=== PATIENT | male | born 1935 | race African-American/Black ===

== ENCOUNTER 2016-10-01 11:21 | Observation (INO) ==
[2016-10-01] MEDS ORDERED: ONDANSETRON 4 MG/2 ML VIAL IV STA (12:10)
[2016-10-01] MEDS ORDERED: SODIUM CHLORIDE 0.9% 500 ML IV STA (12:10)
[2016-10-01] MEDS ORDERED: cefTRIAXone 1,000 MG in SODIUM CHLORIDE 0.9% 100 ML IV STA (12:10)
[2016-10-01] MEDS ORDERED: methylPREDNISolone SOD SUC 125 MG/2 ML VIAL IV STA (12:10)
[2016-10-01] MEDS ORDERED: MORPHINE 2 MG/1 ML SYRINGE IV STA (12:10)
--- NOTE | 2016-10-01 12:26 | Emergency Department Note ---
Adrianna Rabago Gwan, am scribing for, and in the presence of, Vance Samano MD 12 :18. Jazmyne Rabago Charles R, MD, personally performed the services described in this documentation, ascribed by Nelson Rodas in my presence, and it is both accurate and complete 225 . Arrival - Arrival Chief Complaint: Shortness of Breath Stated Complaint: SOB ED Nursing Triage Note: increased sob over the past two days. wears o2 at home and is wearing it now. is a pt of dr tamez. has a hx of lung ca. not taking treatment for cancer. productive cough with foul smelling yellow thick sceretions. Mode of Arrival: Wheelchair Limitations: No Limitations Source: Patient, Family, Old Records Reviewed, RN Notes Reviewed Time Seen by Provider: 10/01/16 12:06 - History of Present Illness HPI Narrative: Pt is a 80 y/o male, with a hx of Stage 4 Lung CA, who presents to the ED with a c/o SOB, loss of appetite, productive cough with yellow sputum and bad odor with an onset of two days. Family stated that pt has refused tx for CA, that he is followed by Dr. Tamez and that he was last seen in office 3 months ago. Nurses note that pt wear O2 at home. Patient denies smoking or any hx of heart dx. No other problems/complaints reported in ED. Onset (ago): day(s) Consistency: constant Severity: severe Allergies/Adverse Reactions: Allergies Allergy/AdvReac Type Severity Reaction Status Date / Time No Known Allergies Allergy Unverified 07/05/16 16:09 Home Medications: Home Medications Medication Instructions Recorded Confirmed Type Aspirin EC Tab 81 mg PO DAILY 07/05/16 10/01/16 History Budesonide/Formoterol 160-4.5 2 puff INH BID 07/05/16 10/01/16 History [Symbicort 160-4.5] Ciprofloxacin HCl [Ciprofloxacin 1 drop BOTH EYES BID 07/05/16 10/01/16 History 0.3% Oph Soln] Ferrous Sulfate Tab [Feosol 325 mg PO BID 07/05/16 10/01/16 History Original Tab] Ipratropium/Albuterol Sulfate 3 ml INH Q4H PRN 07/05/16 10/01/16 History [Iprat-Albut 0.5-3(2.5) mg/3 ml] Ketorolac 0.5% Oph Soln [Acular 1 drop BOTH EYES BID 07/05/16 10/01/16 History 0.5% Oph Soln] Theophylline ER Cap (24 Hr) 200 mg PO DAILY 07/05/16 10/01/16 History [Hector-24] prednisoLONE acetate [PrednisoLONE 1 drop BOTH EYES BID 07/05/16 10/01/16 History Acetate 1% Oph Susp] Ipratropium/Albuterol Inhaler 1 puff INH QID 07/09/16 10/01/16 History [Combivent Respimat Inhaler] Furosemide Tab [Lasix Tab] 40 mg PO QOTHER DAY #30 tablet 07/13/16 10/01/16 Rx Lisinopril 10 mg PO DAILY 10/01/16 10/01/16 History Review of System - Review of System 12 point system: reviewed and no additional remarkable complaints except as stated - Review of System Constitutional: Present: as per HPI, other (loss of appetite) Respiratory: Present: as per HPI, cough (coughin up yellow stuff and it has a bad smell to it), other (short of breathe) Medical,Surgical,& Family Hx - Medical History Cardio: History of: CHF, Hypertension Endocrine: History of: Dyslipidemia Respiratory: History of: COPD (wears oxygen at 2l continuously) - Surgical History Thoracic Surgeries: Patient denies;: Lobectomy Neurologic Surgeries: Patient denies: Neurologic Surgery Abdominal Surgeries: Patient denies: Abdominal Surgery, Appendectomy, Cholecystectomy, Colonoscopy , Gastric Bypass Surgery, EGD, Hernia Repair - Family History Family History: Reports;: Family Cancer (mother, sister), Family Diabetes ( brother), Family Hypertension - Social History Smoking Status: Never smoker Exam Vital Signs: Vital Signs Temperature 98.1 F 10/01/16 12:00 Pulse Rate 114 H 10/01/16 15:30 Respiratory Rate 20 10/01/16 15:30 Blood Pressure 96/44 10/01/16 15:30 O2 Sat by Pulse Oximetry 95 10/01/16 15:30 - General General appearance: alert, other (general weakness) - Head Head exam: Present: atraumatic, normocephalic - Eye Eye exam: Present: normal appearance, PERRL, EOMI - ENT ENT exam: Present: normal oropharynx, mucous membranes moist, TM's normal bilaterally, normal external ear exam - Neck Neck exam: Present: full ROM, trachea midline. Absent: tenderness, meningismus , lymphadenopathy, thyromegaly - Chest Chest inspection: Present: other (Barrel Chest) - Respiratory Respiratory exam: Present: accessory muscle use, rhonchi (Harsh rhonchi worse on right than on left), wheezes (Worse on right than left ) - Cardiovascular Cardiovascular exam: Present: tachycardia - Abdominal Exam Abdominal exam: Present: soft, normal bowel sounds. Absent: distention, tenderness, guarding, rebound - Extremities Exam Extremities exam: Present: other (+1 edema bilateral lower extremities) - Back Exam Back exam: Present: full ROM. Absent: tenderness - Neurological Exam Neurological exam: Present: alert, oriented X3, CN II-XII intact. Absent: motor sensory deficit - Psychiatric Psychiatric exam: Present: normal affect, normal mood - Skin Skin exam: Present: warm, dry, intact, normal color Course - Consultations Consultation #1: Dr Tamez will admit pt Time: 15:46 Results - Labs CBC & BMP: 10/01/16 12:00 10/01/16 13:19 Lab Results: I have reviewed the patients labs Labs: Laboratory Tests 10/01/16 10/01/16 12:00 12:00 RBC 4.89 Hgb 10.5 L Hct 37.0 L MCV 75.7 L MCH 22 L MCHC 28.4 L RDW 18.6 H Plt Count 247 Neut % (Auto) 77.8 H Lymph % (Auto) 9.3 L Lymph # (Auto) 0.6 L INR 1.0 PT Patient/Control Mix 11.1 Laboratory Tests 10/01/16 10/01/16 12:00 12:00 WBC 6.8 RBC 4.89 Hgb 10.5 L Hct 37.0 L MCV 75.7 L MCH 22 L MCHC 28.4 L RDW 18.6 H Plt Count 247 Neut % (Auto) 77.8 H Lymph % (Auto) 9.3 L Lymph # (Auto) 0.6 L B-Natriuretic Peptide 10 Laboratory Tests 10/01/16 13:19 Sodium 140 Potassium 4.4 Chloride 99 Carbon Dioxide 31 BUN 19 H Creatinine 1.80 H Calcium 8.2 L AST 38 H ALT 12 L Albumin 2.9 L Globulin 4.5 H Albumin/Globulin Ratio 0.6 L - Diagnostic Findings Procedure: Chest x-ray: report reviewed by me (No significant change in the chronic interstitial scrring and patient's known right upper lobe lung mass. Slight worsening of right upper lobe opacities suggestive of atelectasis/ consolidative changes. Right basilar atelectasis and small right pleural effusion are not excluded. ) Disposition Clinical Impression: Acute exacerbation of chronic obstructive airways disease, Adenocarcinoma, lung , Mass of upper lobe of right lung, COPD exacerbation Case discussed with: patient, patient's family Disposition: Still a Patient Condition: Stable Time of Disposition: 15:47
[2016-10-01] MEDS ORDERED: ALBUTEROL 2.5 MG/3 ML NEB RESP TX SCH (12:30)
[2016-10-01] MEDS ORDERED: cefTRIAXone 1,000 MG VIAL ONE (12:34)
[2016-10-01] MEDS ORDERED: ONDANSETRON 4 MG/2 ML VIAL ONE (12:34)
[2016-10-01] MEDS ORDERED: MORPHINE 2 MG/1 ML SYRINGE ONE (12:35)
[2016-10-01] MEDS ORDERED: methylPREDNISolone SOD SUC 125 MG/2 ML VIAL ONE (12:35)
[2016-10-01 12:39] LABS: Basophils % 0.3 % (0.0-0.8); Eosinophils % 0.1 % (0.00-10.9); Hemoglobin 10.5 GM/DL (14.0-18.0); Immature Granulocytes % 0.3 %; Immature Granulocytes Absolute 0.02 #; Lymphocytes # 0.6 10*3/uL (1.4-4.0); Lymphocytes % 9.3 % (21.2-54.2); Mean Corpuscular HGB Conc 28.4 GM/DL (32-36); Mean Corpuscular Hemoglobin 22 PG (27-34); Mean Corpuscular Volume 75.7 FL (87-102); Monocytes # 0.8 10*3/uL (0.11-0.8); Monocytes % 12.2 % (1.7-12.7); Neutrophils # 5.3 10*3/uL (1.4-7.4); Neutrophils % 77.8 % (38.7-73.9); Platelet Count 247 10*3/uL (130-400); Red Blood Count 4.89 10*6/uL (3.8-5.5); Red Cell Distribution Width 18.6 % (9.3-17.3); White Blood Count 6.8 10*3/uL (4.5-13.71)
[2016-10-01 12:41] LABS: PT Patient Result 11.1 SECS
--- NOTE | 2016-10-01 12:42 | XRay Report ---
Exam: XR chest 1V portable Indication: Lung cancer Shortness of breath Comparison study: Prior chest radiograph 07/11/16 Findings: Right upper lobe no lung mass is not significantly changed when compared to prior. There are patchy opacities overlying the right upper lung likely representing atelectasis/consolidation changes. Mild elevation the right hemidiaphragm with volume loss is similar to prior. Small right pleural effusion and right basilar infectious/inflammatory infiltrates are not excluded. There is no pneumothorax identified. The left lung is predominantly clear with underlying interstitial scarring changes suggest which appear similar prior. Impression: No significant change in the chronic interstitial scarring and patient's known right upper lobe lung mass. Slight worsening of right upper lobe opacities suggestive of atelectasis/consolidative changes. Right basilar atelectasis and small right pleural effusion are not excluded. PROCEDURE INTERPRETED AT [facility] DEPARTMENT OF RADIOLOGY Final Report Signed by: Jaciel Arcos
[2016-10-01 13:03] LABS: Hypochromasia 1+
[2016-10-01 13:04] LABS: Microcytosis 1+; Ovalocytes Slight; Platelet Estimate Adequate
--- NOTE | 2016-10-01 13:48 | EKG Report ---
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
[2016-10-01 14:40] LABS: Alanine Aminotransferase 12 U/L (16-61); Albumin 2.9 G/DL (3.4-5.0); Alkaline Phosphatase 91 U/L (45-117); Aspartate Amino Transferase 38 U/L (0-37); Calcium 8.2 MG/DL (8.5-10.1); Total Protein 7.4 G/DL (6.4-8.3)
[2016-10-01 14:41] LABS: Blood Urea Nitrogen 19 MG/DL (7-18); Glucose 88 MG/DL (74-106); Magnesium 2.3 MG/DL (1.8-2.4); Osmolality,Calculated 279.4 MOS/KG (273-304); Potassium 4.4 MMOL/L (3.5-5.1); Sodium 140 MMOL/L (136-145); Troponin I Only < 0.015 NG/ML (0.00-0.045)
[2016-10-01] MEDS ORDERED: PROMETHAZINE INJ 25 MG in SODIUM CHLORIDE 0.9% 50 ML IV PRN (16:49)
[2016-10-01] MEDS ORDERED: ALPRAZolam 0.25 MG TABLET PO PRN (16:49)
[2016-10-01] MEDS ORDERED: LACTULOSE 20 GM/30 ML UDCUP PO PRN (16:49)
[2016-10-01] MEDS ORDERED: ALUMINUM/MAGNES/SIMETH MAX STR 30 ML UDCUP PO PRN (16:49)
[2016-10-01] MEDS ORDERED: MYLANTA/LIDO VISC 2:1 300 ML BOTTLE SWISH/SPIT PRN (16:49)
[2016-10-01] MEDS ORDERED: ALBUTEROL/IPRATROPIUM 3 ML NEB RESP TX PRN (16:49)
[2016-10-01] MEDS ORDERED: LOPERAMIDE 2 MG CAPSULE PO PRN ×2 (16:49)
[2016-10-01] MEDS ORDERED: chlorproMAZINE 25 MG TABLET PO PRN (16:49)
[2016-10-01] MEDS ORDERED: MYLANTA/LIDO VISC 2:1 300 ML BOTTLE SWISH/SWAL PRN (16:49)
[2016-10-01] MEDS ORDERED: ONDANSETRON 4 MG/2 ML VIAL IV PRN (16:49)
[2016-10-01] MEDS ORDERED: ACETAMINOPHEN 325 MG TABLET PO PRN (16:49)
[2016-10-01] MEDS ORDERED: MAGNESIUM HYDROXIDE SUSP 30 ML UDCUP PO PRN (16:49)
[2016-10-01] MEDS ORDERED: chlorproMAZINE INJ 50 MG in SODIUM CHLORIDE 0.9% 100 ML IV PRN (16:49)
[2016-10-01] MEDS ORDERED: BENZTROPINE 2 MG/2 ML AMP IV PRN (16:49)
[2016-10-01] MEDS ORDERED: traMADol 50 MG TABLET PO PRN (16:49)
[2016-10-01] MEDS ORDERED: chlorproMAZINE INJ 25 MG in SODIUM CHLORIDE 0.9% 100 ML IV PRN (16:49)
[2016-10-01] MEDS ORDERED: diphenhydrAMINE CAP 25 MG CAPSULE PO PRN (16:49)
[2016-10-01] MEDS ORDERED: TEMAZEPAM 7.5 MG CAPSULE PO PRN (16:49)
[2016-10-01 18:25] LABS: Basophils % 0.2 % (0.0-0.8); Hematocrit 33.3 VOL% (42.0-52.0); Hemoglobin 9.5 GM/DL (14.0-18.0); Immature Granulocytes % 0.3 %; Immature Granulocytes Absolute 0.02 #; Lymphocytes # 0.1 10*3/uL (1.4-4.0); Lymphocytes % 2.1 % (21.2-54.2); Mean Corpuscular HGB Conc 28.5 GM/DL (32-36); Mean Corpuscular Hemoglobin 22 PG (27-34); Mean Corpuscular Volume 77.3 FL (87-102); Mean Platelet Volume 10.6 FL (9.6-12.0); Monocytes # 0.1 10*3/uL (0.11-0.8); Monocytes % 1.6 % (1.7-12.7); Neutrophils # 6.1 10*3/uL (1.4-7.4); Neutrophils % 95.8 % (38.7-73.9); Platelet Count 289 10*3/uL (130-400); Red Blood Count 4.31 10*6/uL (3.8-5.5); Red Cell Distribution Width 18.2 % (9.3-17.3); White Blood Count 6.3 10*3/uL (4.5-13.71)
[2016-10-01] MEDS: SODIUM CHLORIDE 0.9% 1,000 ML IV SCH (18:43)
[2016-10-01 18:53] LABS: Albumin 2.9 G/DL (3.4-5.0); Bilirubin,Total 0.5 MG/DL (0.2-1.0); Magnesium 2.3 MG/DL (1.8-2.4); Osmolality,Calculated 279.7 MOS/KG (273-304); Potassium 4.5 MMOL/L (3.5-5.1); Total Protein 7.3 G/DL (6.4-8.3)
[2016-10-01 18:57] LABS: Lymphocytes 2 % (20-55); Segmented Neutrophils 96 % (50-85); Total Cells Counted 100
[2016-10-01 18:58] LABS: Elliptocytes 1+; Hypochromasia 1+; Platelet Estimate Adequate
[2016-10-01] MEDS: methylPREDNISolone SOD SUC 40 MG/1 ML VIAL IV SCH (21:21)
[2016-10-01] MEDS: BUDESONIDE/FORMOTEROL 160-4.5 INHALER 6 GM INH SCH (21:21)
[2016-10-01] MEDS: FERROUS SULFATE 325 MG TABLET PO SCH (21:22)
[2016-10-01] MEDS: prednisoLONE ACETATE 1% OPH SUSP 5 ML BOTTLE BOTH EYES SCH (21:22)
[2016-10-01] MEDS: CIPROFLOXACIN 0.3% OPH SOLN 2.5 ML BOTTLE BOTH EYES SCH (21:22)
[2016-10-01] MEDS: ALBUTEROL/IPRATROPIUM 3 ML NEB RESP TX SCH (22:40)
[2016-10-01] MEDS: KETOROLAC 0.5% OPH SOLN 3 ML BOTTLE BOTH EYES SCH (23:10)
[2016-10-02] MEDS: methylPREDNISolone SOD SUC 40 MG/1 ML VIAL IV SCH ×3 (04:57→21:33)
[2016-10-02] MEDS: SODIUM CHLORIDE 0.9% 1,000 ML IV SCH (04:57)
[2016-10-02] MEDS: ALBUTEROL/IPRATROPIUM 3 ML NEB RESP TX SCH ×4 (08:07→21:56)
--- NOTE | 2016-10-02 08:54 | Oncology History&Physical ---
Assessment and Plan (1) Non-small cell lung cancer Status: Acute Assessment and plan: The patient continues to decline radiotherapy. We have entertained chemotherapy though with a non-curative expectation. We have also discussed quality of life. I relayed that quality of life would be better off without pursuing treatment and the potential complications thereof. At this time the patient reaffirms his decision for best supportive care. We have discussed for home hospice to follow the patient after discharge and he is also agreeable to this plan of care. Possible discharge tomorrow Current Visit: Yes History of Present Illness Chief complaint: Shortness of breath History of present illness: Mr. Holder is a 80 year old male Admitted yesterday with a 24 hour complaint of increasing shortness of breath. The patient has non-small cell lung cancer involving the right upper lobe. He was seen in the office in June 2016 as an initial visit. After a prolonged discussion the patient decided upon best supportive care and not to pursue active treatment. He has been on home O2. He has been able to get around still driving etc. with the continuous use of O2. He denied fever or hemoptysis. Decreased O2 saturations were noted yesterday in the emergency room and the patient was admitted for further care. Home Medications Medication Instructions Recorded Confirmed Type Aspirin EC Tab 81 mg PO DAILY 07/05/16 10/01/16 History Budesonide/Formoterol 160-4.5 2 puff INH BID 07/05/16 10/01/16 History [Symbicort 160-4.5] Ciprofloxacin HCl [Ciprofloxacin 1 drop BOTH EYES BID 07/05/16 10/01/16 History 0.3% Oph Soln] Ferrous Sulfate Tab [Feosol 325 mg PO BID 07/05/16 10/01/16 History Original Tab] Ipratropium/Albuterol Sulfate 3 ml INH Q4H PRN 07/05/16 10/01/16 History [Iprat-Albut 0.5-3(2.5) mg/3 ml] Ketorolac 0.5% Oph Soln [Acular 1 drop BOTH EYES BID 07/05/16 10/01/16 History 0.5% Oph Soln] Theophylline ER Cap (24 Hr) 200 mg PO DAILY 07/05/16 10/01/16 History [Hector-24] prednisoLONE acetate [PrednisoLONE 1 drop BOTH EYES BID 07/05/16 10/01/16 History Acetate 1% Oph Susp] Ipratropium/Albuterol Inhaler 1 puff INH QID 07/09/16 10/01/16 History [Combivent Respimat Inhaler] Furosemide Tab [Lasix Tab] 40 mg PO QOTHER DAY #30 tablet 07/13/16 10/01/16 Rx Lisinopril 10 mg PO DAILY 10/01/16 10/01/16 History Allergies Allergy/AdvReac Type Severity Reaction Status Date / Time No Known Allergies Allergy Unverified 07/05/16 16:09 Medical,Surgical,& Family Hx - Medical History Cardio: History of: CHF, Hypertension Endocrine: History of: Dyslipidemia Respiratory: History of: COPD (wears oxygen at 2l continuously) Other: History of: Cancer - Surgical History Thoracic Surgeries: Patient denies;: Lobectomy Neurologic Surgeries: Patient denies: Neurologic Surgery Abdominal Surgeries: Patient denies: Abdominal Surgery, Appendectomy, Cholecystectomy, Colonoscopy , Gastric Bypass Surgery, EGD, Hernia Repair - Family History Family History: Reports;: Family Cancer (mother, sister), Family Diabetes ( brother), Family Hypertension - Social History Smoking Status: Never smoker Frequency of Alcohol Use: None Type of Drug Use: None - Constitutional Constitutional: Present: fatigue, malaise, weakness. Absent: fever(s), night sweats - EENT Eye: Absent: diplopia, loss of vision Ears: Absent: decreased hearing Nose, mouth and throat: Absent: dysphagia, epistaxis - Cardiovascular Cardiovascular ROS IM: Absent: chest pain, palpitations - Respiratory Respiratory: Present: cough, dyspnea, wheezing. Absent: hemoptysis - Gastrointestinal Gastrointestinal: Absent: dysphagia, early satiety - Genitourinary Genitourinary ROS male: Absent: hematuria - Musculoskeletal Musculoskeletal ROS: Absent: joint swelling - Neurological Neurological ROS: other (No seizure or syncope) - Psychiatric Psychiatric General: Absent: panic attacks Exam - Constitutional Vitals: Period Temp Pulse Resp BP Sys/Pak Pulse Ox Last 24 Hr 97 F-97.7 F 82-119 20-22 95-120/43-60 91-98 General appearance: normal weight, no acute distress - Head Head Exam: Present: normocephalic - Eye Eye Exam: Present: EOMI. Absent: conjunctival injection Pupils: Present: PERRL - ENT ENT exam: Present: normal external ear exam - Neck Neck exam: Present: normal inspection. Absent: lymphadenopathy - Respiratory Respiratory exam: Present: CTAB, decreased breath sounds. Absent: accessory muscle use, chest wall tenderness - Cardiovascular Cardiovascular exam: Present: RRR. Absent: systolic murmur - GI/Abdominal GI/Abdominal exam: Absent: ascites, distended, firm, guarding - Extremities Exam Extremities exam: Absent: edema - Neurological Exam Neurological exam: Present: alert, oriented X3 - Psychiatric Psychiatric exam: Present: normal affect, normal mood. Absent: agitated - Skin Skin exam: Present: warm, dry Results - Labs CBC & BMP: 10/01/16 18:00 10/01/16 17:59
--- NOTE | 2016-10-02 09:05 | XRay Report ---
XR chest 2V Indication: Shortness of breath Comparison: 01 October 2016 Findings: The heart and mediastinum are normal in size and configuration. The pulmonary vascularity is normal in caliber. There is increased right upper lung density when compared to previous study. No other lung infiltrates, effusions, pneumothorax or other abnormality is demonstrated. Impression: Increasing right upper lung density may indicate worsening pneumonia. PROCEDURE INTERPRETED AT [facility] DEPARTMENT OF RADIOLOGY Final Report Signed by: Dr. Clifton Londono
[2016-10-02] MEDS: LISINOPRIL 10 MG TABLET PO SCH (09:20)
[2016-10-02] MEDS: CIPROFLOXACIN 0.3% OPH SOLN 2.5 ML BOTTLE BOTH EYES SCH ×2 (09:20→21:33)
[2016-10-02] MEDS: ASPIRIN EC 81 MG TABLET PO SCH (09:20)
[2016-10-02] MEDS: THEOPHYLLINE ER (24 HR) 200 MG CAPSULE PO SCH (09:20)
[2016-10-02] MEDS: FERROUS SULFATE 325 MG TABLET PO SCH ×2 (09:20→21:33)
[2016-10-02] MEDS: prednisoLONE ACETATE 1% OPH SUSP 5 ML BOTTLE BOTH EYES SCH ×2 (09:20→21:34)
[2016-10-02] MEDS: PANTOPRAZOLE 40 MG VIAL IV SCH (09:20)
[2016-10-02] MEDS: BUDESONIDE/FORMOTEROL 160-4.5 INHALER 6 GM INH SCH ×2 (09:23→21:34)
[2016-10-02] MEDS: KETOROLAC 0.5% OPH SOLN 3 ML BOTTLE BOTH EYES SCH ×2 (09:24→21:34)
[2016-10-02] MEDS: guaiFENesin 200 MG/10 ML UDCUP PO PRN ×2 (13:53→21:33)
[2016-10-02] MEDS: cefTRIAXone 1,000 MG in SODIUM CHLORIDE 0.9% 100 ML IV SCH (13:53)
[2016-10-03] MEDS: methylPREDNISolone SOD SUC 40 MG/1 ML VIAL IV SCH ×2 (05:52→14:06)
[2016-10-03] MEDS: ALBUTEROL/IPRATROPIUM 3 ML NEB RESP TX SCH ×4 (07:05→20:36)
[2016-10-03] MEDS ORDERED: FUROSEMIDE 40 MG TABLET PO SCH (09:00)
[2016-10-03] MEDS: ASPIRIN EC 81 MG TABLET PO SCH (09:03)
[2016-10-03] MEDS: prednisoLONE ACETATE 1% OPH SUSP 5 ML BOTTLE BOTH EYES SCH ×2 (09:03→21:53)
[2016-10-03] MEDS: guaiFENesin 200 MG/10 ML UDCUP PO PRN (09:03)
[2016-10-03] MEDS: CIPROFLOXACIN 0.3% OPH SOLN 2.5 ML BOTTLE BOTH EYES SCH ×2 (09:03→21:54)
[2016-10-03] MEDS: THEOPHYLLINE ER (24 HR) 200 MG CAPSULE PO SCH (09:03)
[2016-10-03] MEDS: PANTOPRAZOLE 40 MG VIAL IV SCH (09:03)
[2016-10-03] MEDS: FERROUS SULFATE 325 MG TABLET PO SCH ×2 (09:03→21:56)
[2016-10-03] MEDS: LISINOPRIL 10 MG TABLET PO SCH (09:03)
[2016-10-03] MEDS: BUDESONIDE/FORMOTEROL 160-4.5 INHALER 6 GM INH SCH ×2 (09:07→21:57)
[2016-10-03] MEDS: KETOROLAC 0.5% OPH SOLN 3 ML BOTTLE BOTH EYES SCH ×2 (09:08→22:08)
--- NOTE | 2016-10-03 09:16 | Oncology Progress Note ---
Assessment and Plan (1) Non-small cell lung cancer Status: Acute Assessment and plan: The patient continues to decline radiotherapy. We have entertained chemotherapy though with a non-curative expectation. We have also discussed quality of life. I relayed that quality of life would be better off without pursuing treatment and the potential complications thereof. At this time the patient reaffirms his decision for best supportive care. We have discussed for home hospice to follow the patient after discharge and he is also agreeable to this plan of care. Possible discharge tomorrow Current Visit: Yes Oncology Subjective PN Interval history: Patient with lung cancer on best supportive care admitted with shortness of breath. His saturations remain marginal at 91% on 2 L nasal cannula. His cousin was present this morning and we had a discussion regarding his case in general as well as reaffirming the patient's decision to continue with best supportive care. Anticipating discharge tomorrow with home hospice. On examination the patient has a regular heart rhythm with no peripheral edema. He is appropriate awake alert and oriented. He does have a prolonged expiratory phase on bilateral pulmonary auscultation. I have tried to explain that he will likely have some degree of dyspnea for the remainder of his life. Hopefully he will be stable for discharge tomorrow and will do better with additional home care that was not available prior to admission Exam - Constitutional Vitals: Period Temp Pulse Resp BP Sys/Pak Pulse Ox Last 24 Hr 97.0 F-98.4 F 87-100 17-22 105-116/57-68 78-100 Results - Labs CBC & BMP: 10/01/16 18:00 10/01/16 17:59 Specialty Discharge - Follow Up or Referrals - Discharge Medications No Action Ketorolac 0.5% Oph Soln [Acular 0.5% Oph Soln] 1 drop BOTH EYES BID Ciprofloxacin HCl [Ciprofloxacin 0.3% Oph Soln] 1 drop BOTH EYES BID prednisoLONE acetate [PrednisoLONE Acetate 1% Oph Susp] 1 drop BOTH EYES BID Budesonide/Formoterol 160-4.5 [Symbicort 160-4.5] 2 puff INH BID Aspirin EC Tab 81 mg PO DAILY Theophylline ER Cap (24 Hr) [Hector-24] 200 mg PO DAILY Ferrous Sulfate Tab [Feosol Original Tab] 325 mg PO BID Ipratropium/Albuterol Sulfate [Iprat-Albut 0.5-3(2.5) mg/3 ml] 3 ml INH Q4H PRN PRN Reason: Shortness Of Breath Ipratropium/Albuterol Inhaler [Combivent Respimat Inhaler] 1 puff INH QID Furosemide Tab [Lasix Tab] 40 mg PO QOTHER DAY #30 tablet Lisinopril 10 mg PO DAILY
[2016-10-03] MEDS: cefTRIAXone 1,000 MG in SODIUM CHLORIDE 0.9% 100 ML IV SCH (14:06)
[2016-10-04] MEDS: ALBUTEROL/IPRATROPIUM 3 ML NEB RESP TX SCH (07:35)
[2016-10-04 08:27] VITALS: BP 123/62
--- NOTE | 2016-10-04 09:22 | Discharge Summary ---
Hospital Course - Hospital Course Hospital Course: Patient with advanced non-small cell lung cancer involving the right lung. The patient was admitted from home where he was receiving best supportive care. He previously declined chemotherapy or radiotherapy from our visit in June. During his hospitalizations we have treated with IV steroids and Rocephin in addition to nebulized breathing treatments. The patient already has home nebulizer and home O2 in place. We again discussed the natural course of lung cancer and the patient continues to choose best supportive care over aggressive care. Specifically he does not desire radiotherapy or chemotherapy at this time. His cousin has been in attendance the on the last 2 morning rounds and has witnessed our conversations in addition to nursing staff. I have explained that he is appropriate for hospice with a life expectancy of 6 months or less and I have also explained that unfortunately he may continue to experience episodes of dyspnea. I will send the patient home with both long and short acting narcotics, anxiolytics, and oral prednisone. He is to be followed by home hospice at the time of discharge Diagnosis - Discharge Diagnosis (1) Non-small cell lung cancer Status: Acute Specialty Discharge - Follow Up or Referrals - Discharge Medications Continue Ketorolac 0.5% Oph Soln [Acular 0.5% Oph Soln] 1 drop BOTH EYES BID prednisoLONE acetate [PrednisoLONE Acetate 1% Oph Susp] 1 drop BOTH EYES BID Budesonide/Formoterol 160-4.5 [Symbicort 160-4.5] 2 puff INH BID Aspirin EC Tab 81 mg PO DAILY Theophylline ER Cap (24 Hr) [Hector-24] 200 mg PO DAILY Ipratropium/Albuterol Sulfate [Iprat-Albut 0.5-3(2.5) mg/3 ml] 3 ml INH Q4H PRN PRN Reason: Shortness Of Breath Ipratropium/Albuterol Inhaler [Combivent Respimat Inhaler] 1 puff INH QID Furosemide Tab [Lasix Tab] 40 mg PO QOTHER DAY #30 tablet Lisinopril 10 mg PO DAILY Discontinued Ciprofloxacin HCl [Ciprofloxacin 0.3% Oph Soln] 1 drop BOTH EYES BID Ferrous Sulfate Tab [Feosol Original Tab] 325 mg PO BID Discharge Plan - Discharge Medications Continue Ketorolac 0.5% Oph Soln [Acular 0.5% Oph Soln] 1 drop BOTH EYES BID prednisoLONE acetate [PrednisoLONE Acetate 1% Oph Susp] 1 drop BOTH EYES BID Budesonide/Formoterol 160-4.5 [Symbicort 160-4.5] 2 puff INH BID Aspirin EC Tab 81 mg PO DAILY Theophylline ER Cap (24 Hr) [Hector-24] 200 mg PO DAILY Ipratropium/Albuterol Sulfate [Iprat-Albut 0.5-3(2.5) mg/3 ml] 3 ml INH Q4H PRN PRN Reason: Shortness Of Breath Ipratropium/Albuterol Inhaler [Combivent Respimat Inhaler] 1 puff INH QID Furosemide Tab [Lasix Tab] 40 mg PO QOTHER DAY #30 tablet Lisinopril 10 mg PO DAILY Discontinued Ciprofloxacin HCl [Ciprofloxacin 0.3% Oph Soln] 1 drop BOTH EYES BID Ferrous Sulfate Tab [Feosol Original Tab] 325 mg PO BID - Follow Up or Referral - Forms/Instructions Exam - Constitutional Vitals: Period Temp Pulse Resp BP Sys/Apk Pulse Ox Last 24 Hr 97.1 F-98.5 F 84-108 16-24 95-126/55-65 83-97 DS: Provider Date of admission: 10/01/16 15:57 Primary care physician: . No PCP Attending physician on admission: Walter Bush MD Consults: 10/01/16 16:49 Consult to Case Mgmt/Social Srvs [CONS] Routine Reason for Case Mgmt/Social Srvs: Rehab Hospice Referral 10/01/16 17:07 Consult to Pharmacy [CONS] Routine Reason for Pharmacy Consult: Adjust Meds Renal Funct 10/01/16 18:31 Consult to Dietitian [CONS] Routine Reason for Dietitian: Diet Recommendations Discharging clinician: Walter Bush MD
[2016-10-04] MEDS: BUDESONIDE/FORMOTEROL 160-4.5 INHALER 6 GM INH SCH (09:56)
[2016-10-04] MEDS: CIPROFLOXACIN 0.3% OPH SOLN 2.5 ML BOTTLE BOTH EYES SCH (09:57)
[2016-10-04] MEDS: prednisoLONE ACETATE 1% OPH SUSP 5 ML BOTTLE BOTH EYES SCH (09:57)
[2016-10-04] MEDS: FERROUS SULFATE 325 MG TABLET PO SCH (09:59)
[2016-10-04] MEDS: LISINOPRIL 10 MG TABLET PO SCH (10:00)
[2016-10-04] MEDS: THEOPHYLLINE ER (24 HR) 200 MG CAPSULE PO SCH (10:00)
[2016-10-04] MEDS: ASPIRIN EC 81 MG TABLET PO SCH (10:00)
[2016-10-04] MEDS: KETOROLAC 0.5% OPH SOLN 3 ML BOTTLE BOTH EYES SCH (10:39)
[2016-10-04] MEDS: PANTOPRAZOLE 40 MG VIAL IV SCH (10:39)
== END 2016-10-04 10:45 | disposition hospice, home (50) ==
LOC: N.ED 11:21 → N.EDINP 11:21 → N.4E 16:56
PROVIDERS: ADMIT Specialist; ATTEND Specialist

== ENCOUNTER 2016-11-24 18:19 | Inpatient (IN) ==
[2016-11-24] MEDS ORDERED: methylPREDNISolone SOD SUC 125 MG/2 ML VIAL IV STA (18:27)
[2016-11-24] MEDS ORDERED: LEVOFLOXACIN INJ 750 MG in PREMIX 1 EACH IV STA (18:27)
[2016-11-24] MEDS ORDERED: MAGNESIUM SULF RIDER 2 GM in PREMIX 1 EACH IV STA (18:27)
[2016-11-24] MEDS ORDERED: ALBUTEROL 2.5 MG/3 ML NEB RESP TX SCH (18:30)
--- NOTE | 2016-11-24 18:32 | Emergency Department Note ---
Arrival - Arrival Chief Complaint: Shortness of Breath Stated Complaint: SOB ED Nursing Triage Note: PT COME FROM HOME C/O SOB. PT HAS LUNG CANCER. DENIES CHEMO. PT HAS FEVER. Mode of Arrival: Stretcher Limitations: No Limitations Source: Patient Time Seen by Provider: 11/24/16 18:27 - History of Present Illness HPI Narrative: This 81-year-old black male with a history of non-small cell lung cancer of the right long which he chose not to have treated presents with 5 days of increasing shortness of breath, cough productive discolored sputum, chills, fever, wheeze, and generalized body aches. Currently he appears quite dyspneic with short clips of words rather than sentences. Since his. He denies any chest pain in association with this nor any nausea, vomiting, or diarrhea. Onset (ago): day(s) (4 days since onset of symptoms) Consistency: constant Severity: severe Allergies/Adverse Reactions: Allergies Allergy/AdvReac Type Severity Reaction Status Date / Time No Known Allergies Allergy Unverified 07/05/16 16:09 Home Medications: Home Medications Medication Instructions Recorded Confirmed Type Aspirin EC Tab 81 mg PO DAILY 07/05/16 10/01/16 History Budesonide/Formoterol 160-4.5 2 puff INH BID 07/05/16 10/01/16 History [Symbicort 160-4.5] Ipratropium/Albuterol Sulfate 3 ml INH Q4H PRN 07/05/16 10/01/16 History [Iprat-Albut 0.5-3(2.5) mg/3 ml] Ketorolac 0.5% Oph Soln [Acular 1 drop BOTH EYES BID 07/05/16 10/01/16 History 0.5% Oph Soln] Theophylline ER Cap (24 Hr) 200 mg PO DAILY 07/05/16 10/01/16 History [Hector-24] prednisoLONE acetate [PrednisoLONE 1 drop BOTH EYES BID 07/05/16 10/01/16 History Acetate 1% Oph Susp] Ipratropium/Albuterol Inhaler 1 puff INH QID 07/09/16 10/01/16 History [Combivent Respimat Inhaler] Furosemide Tab [Lasix Tab] 40 mg PO QOTHER DAY #30 tablet 07/13/16 10/01/16 Rx Lisinopril 10 mg PO DAILY 10/01/16 10/01/16 History Review of System - Review of System 12 point system: reviewed and no additional remarkable complaints except as stated - Review of System Constitutional: Present: as per HPI Respiratory: Present: as per HPI Cardiovascular: Present: as per HPI Gastrointestinal: Present: as per HPI Medical,Surgical,& Family Hx - Medical History Cardio: History of: CHF, Hypertension Endocrine: History of: Dyslipidemia Respiratory: History of: COPD, Lung Cancer Other: History of: Cancer - Surgical History Thoracic Surgeries: Patient denies;: Lobectomy Neurologic Surgeries: Patient denies: Neurologic Surgery Abdominal Surgeries: Patient denies: Abdominal Surgery, Appendectomy, Cholecystectomy, Colonoscopy , Gastric Bypass Surgery, EGD, Hernia Repair - Family History Family History: Reports;: Family Cancer (mother, sister), Family Diabetes ( brother), Family Hypertension - Social History Smoking Status: Unknown if ever smoked Exam Physical Examination: GENERAL: Chronically ill-appearing elderly black male with visible increased work of breathing and mild respiratory distress. HEENT: Normocephalic. No trauma. Moist mucous membranes. EOMI. PERRLA. NECK: Supple. No adenopathy. CARDIAC: Regular. No murmurs. CHEST: Diffuse expiratory rhonchi and wheezes but decreased breath sounds right base. Mild respiratory distress. With increased work of breathing. O2 sat on room air 81% ABDOMEN: Soft. Nontender. Active bowel sounds. EXTREMITIES: No trauma. Normal ROM. No pedal edema. SKIN: No diaphoresis. No rash. NEURO: Alert. Neuro intact. No focal deficits. Vital Signs: Vital Signs Temperature 100.3 F H 11/24/16 18:35 Pulse Rate 121 H 11/24/16 18:35 Respiratory Rate 30 H 11/24/16 18:35 Blood Pressure 140/69 11/24/16 18:35 O2 Sat by Pulse Oximetry 86 L 11/24/16 18:30 Course - Reevaluation(s) Reevaluation #1: Discussed with patient the obvious need for hospitalization. The patient still refuses treatment for his cancer as well as refuses to go on DNR status. - Consultations Consultation #1: Discussed with Dr. Bush who will admit for further evaluation and treatment. Results - Labs CBC & BMP: 11/24/16 18:30 11/24/16 18:30 Labs: I have reviewed the laboratory noted the elevated white blood cell count - Impressions EKG: Sinus tachycardia with short NV interval with normal QRS duration. Diffuse nonspecific ST-T changes. No acute injury pattern noted. - Diagnostic Findings Procedure: Chest x-ray: image reviewed by me, report reviewed by me (almost complete white out of the right chest secondary to combination of tumor effusion and infiltrate) Disposition Clinical Impression: pneumonia, progressive non-small cell carcinoma Case discussed with: patient, patient's family Disposition: Still a Patient Condition: Guarded Time of Disposition: 19:28
[2016-11-24] MEDS: TERBUTALINE 1 MG/1 ML VIAL SUBCUT SCH ×2 (18:45→19:21)
[2016-11-24 18:50] LABS: Basophils % 0.1 % (0.0-0.8); Eosinophils % 0.2 % (0.00-10.9); Hematocrit 34.8 VOL% (42.0-52.0); Hemoglobin 10.2 GM/DL (14.0-18.0); Immature Granulocytes % 0.8 %; Immature Granulocytes Absolute 0.15 #; Lymphocytes % 5.3 % (21.2-54.2); Mean Corpuscular HGB Conc 29.3 GM/DL (32-36); Mean Corpuscular Hemoglobin 22 PG (27-34); Mean Corpuscular Volume 74.5 FL (87-102); Monocytes # 1.8 10*3/uL (0.11-0.8); Monocytes % 10.1 % (1.7-12.7); Neutrophils # 15.2 10*3/uL (1.4-7.4); Neutrophils % 83.5 % (38.7-73.9); Platelet Count 203 T/CUMM (130-400); Red Blood Count 4.67 MC/CUMM (3.8-5.5); Red Cell Distribution Width 21.3 % (9.3-17.3); White Blood Count 18.1 T/CUMM (4-12)
[2016-11-24 19:09] LABS: Alanine Aminotransferase 17 U/L (16-61); Albumin 2.4 G/DL (3.4-5.0); Alkaline Phosphatase 80 U/L (45-117); Aspartate Amino Transferase 37 U/L (0-37); Blood Urea Nitrogen 27 MG/DL (7-18); Calcium 8.5 MG/DL (8.5-10.1); Glucose 85 MG/DL (74-106); Sodium 136 MMOL/L (136-145); Total Protein 7.2 G/DL (6.4-8.3); Troponin I Only < 0.015 NG/ML (0.00-0.045)
--- NOTE | 2016-11-24 19:11 | XRay Report ---
Referring Physician: Jonathan Salazar Exam: XR chest 1V portable Date: November 24, 2016 at 6:18 PM Reason: Shortness of breath Comparison: Chest 2 views October 02, 2016, CT chest July 05, 2016 Findings: The heart is likely stable in size but is partially obscured prominent opacities within the right lung. Right hilar adenopathy is suspected. The right lung is almost completely opacified with scattered areas of residual aeration at the upper and midlung zones. This is concerning for atelectasis/consolidation and likely neoplasm. Right pleural fluid is also suspected, but no pneumothorax is identified. There is minimal atelectasis or scarring at the left lung base and emphysema. The osseous structures appear stable. Impression: The right lung is almost completely opacified today, and there is likely adenopathy at the right hilum. This is concerning for atelectasis/consolidation, pleural fluid and likely neoplasm. PROCEDURE INTERPRETED AT [facility] DEPARTMENT OF RADIOLOGY Final Report Signed by: Dr. Camron Licona
[2016-11-24] MEDS ORDERED: ONDANSETRON 4 MG/2 ML VIAL IV PRN (19:32)
[2016-11-24] MEDS ORDERED: ONDANSETRON 4 MG/2 ML VIAL ONE (20:06)
[2016-11-24] MEDS: LEVOFLOXACIN INJ 750 MG in PREMIX 1 EACH IV SCH (21:57)
[2016-11-25] MEDS: methylPREDNISolone SOD SUC 125 MG/2 ML VIAL IV SCH ×5 (00:15→20:38)
[2016-11-25] MEDS: TERBUTALINE 1 MG/1 ML VIAL SUBCUT SCH ×2 (00:16→00:17)
[2016-11-25] MEDS: ALBUTEROL/IPRATROPIUM 3 ML NEB RESP TX SCH ×4 (06:07→19:40)
[2016-11-25 08:02] LABS: Hematocrit 31.7 VOL% (42.0-52.0); Hemoglobin 9.3 GM/DL (14.0-18.0); Immature Granulocytes % 0.4 %; Immature Granulocytes Absolute 0.06 #; Lymphocytes # 0.3 10*3/uL (1.4-4.0); Lymphocytes % 1.9 % (21.2-54.2); Mean Corpuscular HGB Conc 29.3 GM/DL (32-36); Mean Corpuscular Hemoglobin 22 PG (27-34); Mean Corpuscular Volume 74.8 FL (87-102); Monocytes # 0.4 10*3/uL (0.11-0.8); Monocytes % 2.8 % (1.7-12.7); Neutrophils # 13.4 10*3/uL (1.4-7.4); Neutrophils % 94.9 % (38.7-73.9); Platelet Count 278 T/CUMM (130-400); Red Blood Count 4.24 MC/CUMM (3.8-5.5); Red Cell Distribution Width 21.2 % (9.3-17.3); White Blood Count 14.1 T/CUMM (4-12)
--- NOTE | 2016-11-25 08:04 | XRay Report ---
Exam: XR chest 2V Date: 11/25/2016 750 AM Indication: Pneumonia Comparison: None Findings: Improved aeration with decreased effusion present however there is an area of increased density in the right base and right perihilar region no pneumothorax present. Underlying component of COPD with hyperinflation present. The heart is normal in size. A speech present. Apical pleural thickening is present. Impression: 1. Improved aeration with decreased effusion right chest however residual area of atelectatic change infiltrate and/or mass present on the right lung. 2. Underlying COPD with hyperinflation PROCEDURE INTERPRETED AT [facility] DEPARTMENT OF RADIOLOGY Final Report Signed by: Dr. Jori Donovan
[2016-11-25 08:26] LABS: Band Neutrophils 1 % (0-10); Elliptocytes Few; Hypochromasia 1+; Lymphocytes 2 % (20-55); Platelet Estimate Adequate; Segmented Neutrophils 96 % (50-85); Total Cells Counted 100
[2016-11-25 08:35] LABS: Albumin 2.2 G/DL (3.4-5.0); Bilirubin,Total 0.9 MG/DL (0.2-1.0); Calcium 8.6 MG/DL (8.5-10.1); Potassium 5.1 MMOL/L (3.5-5.1); Total Protein 5.8 G/DL (6.4-8.3)
--- NOTE | 2016-11-25 08:39 | Oncology History&Physical ---
Assessment and Plan (1) Non-small cell lung cancer Status: Acute Assessment and plan: We will continue to provide best supportive care primarily with oxygen and steroids at this time. The patient does appear to have malignant progression based on chest x-ray imaging and he will likely return to hospice or discharge. We have discussed CODE STATUS this morning and he clearly wishes for no mechanical ventilation or cardiac resuscitation Current Visit: No History of Present Illness Chief complaint: Patient with non-small cell lung cancer diagnosed 2016 on best supportive History of present illness: Mr. Holder is a 81 year old male With non-small cell lung cancer diagnosed 2016. The patient has not pursued treatment of any type. He is on best supportive care. Patient had a few admissions here at [place] for shortness of breath and lung cancer related complications. He is on home hospice in [place] and is cared for primarily by his cousins. He states over the last week he has had some increasing anxiety and agitation related to certain caregivers. Because of this he reports increasing dyspnea and came to the hospital to seek medical care. He denies hemoptysis. Home Medications Medication Instructions Recorded Confirmed Type Aspirin EC Tab 81 mg PO DAILY 07/05/16 11/24/16 History Budesonide/Formoterol 160-4.5 2 puff INH BID 07/05/16 11/24/16 History [Symbicort 160-4.5] Ipratropium/Albuterol Sulfate 3 ml INH Q4H PRN 07/05/16 11/24/16 History [Iprat-Albut 0.5-3(2.5) mg/3 ml] Theophylline ER Cap (24 Hr) 200 mg PO DAILY 07/05/16 11/24/16 History [Hector-24] Ipratropium/Albuterol Inhaler 1 puff INH QID 07/09/16 11/24/16 History [Combivent Respimat Inhaler] Furosemide Tab [Lasix Tab] 40 mg PO QOTHER DAY #30 tablet 07/13/16 11/24/16 Rx Lisinopril 10 mg PO DAILY 10/01/16 11/24/16 History ALPRAZolam [Alprazolam] 0.25 - 0.5 mg PO Q4H 11/24/16 11/24/16 History Hydrocodone/Acetaminophen 1 each PO Q6H PRN 11/24/16 11/24/16 History [Hydrocodon-Acetaminophn 10-325] predniSONE TAB [PredniSONE] 10 mg PO DAILY 11/24/16 11/24/16 History Allergies Allergy/AdvReac Type Severity Reaction Status Date / Time No Known Allergies Allergy Unverified 07/05/16 16:09 Medical,Surgical,& Family Hx - Medical History Cardio: History of: CHF, Hypertension Endocrine: History of: Dyslipidemia Respiratory: History of: COPD, Lung Cancer Other: History of: Cancer - Surgical History Cardiac Surgeries: Patient Denies: Femoral-Popliteal Bypass Graft, Cardiac Catheterization, Cardiac Surgery, Carotid Endarterectomy, Internal Defibrillator, Vascular Access Devices Thoracic Surgeries: Patient denies;: Organ Transplant, Lobectomy Neurologic Surgeries: Patient denies: Neurologic Surgery HEENT Surgeries: Patient denies: Carotid Endarterectomy Abdominal Surgeries: Patient denies: Abdominal Surgery, Appendectomy, Cholecystectomy, Colonoscopy , Gastric Bypass Surgery, EGD, Hernia Repair, Splenectomy - Family History Family History: Reports;: Family Cancer (mother, sister), Family Diabetes ( brother), Family Hypertension, Family Stroke - Social History Smoking Status: Unknown if ever smoked Frequency of Alcohol Use: None Type of Drug Use: None - Constitutional Constitutional: Present: fatigue, weakness, weight loss. Absent: fever(s) - EENT Eye: Absent: loss of vision Ears: Absent: ear discharge, ear pain Nose, mouth and throat: Absent: neck mass, neck pain, odynophagia, sore throat - Respiratory Respiratory: Present: cough. Absent: hemoptysis Exam - Constitutional Vitals: Period Temp Pulse Resp BP Sys/Pak Pulse Ox Last 24 Hr 97.7 F-99.8 F 108-140 18-28 97-127/53-58 90-93 General appearance: mild distress, disheveled - Head Head Exam: Present: normal inspection, normocephalic, atraumatic - Eye Eye Exam: Present: EOMI. Absent: conjunctival injection, scleral icterus Pupils: Present: PERRL - ENT ENT exam: Present: normal external ear exam - Neck Neck exam: Present: normal inspection. Absent: lymphadenopathy - Respiratory Respiratory exam: Present: other (His lungs sound fairly unremarkable without wheezes at this time. No pursed lip or tripoding is noted). Absent: accessory muscle use, chest wall tenderness - Cardiovascular Cardiovascular exam: Present: RRR - GI/Abdominal GI/Abdominal exam: Absent: ascites, distended, firm, guarding - Extremities Exam Extremities exam: Present: normal capillary refill Results - Labs CBC & BMP: 11/25/16 07:22 11/24/16 18:30
[2016-11-25] MEDS: PANTOPRAZOLE 40 MG TABLET PO SCH (08:50)
[2016-11-25] MEDS: THEOPHYLLINE ER (24 HR) 300 MG CAPSULE PO SCH (08:50)
--- NOTE | 2016-11-25 15:42 | EKG Report ---
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
[2016-11-25] MEDS: LEVOFLOXACIN INJ 750 MG in PREMIX 1 EACH IV SCH (20:32)
[2016-11-26] MEDS: ALBUTEROL/IPRATROPIUM 3 ML NEB RESP TX SCH ×4 (01:09→19:06)
--- NOTE | 2016-11-26 08:19 | Oncology Progress Note ---
Assessment and Plan (1) Non-small cell lung cancer Status: Acute Assessment and plan: We will continue to provide best supportive care primarily with oxygen and steroids at this time. The patient does appear to have malignant progression based on chest x-ray imaging and he will likely return to hospice or discharge. We have discussed CODE STATUS this morning and he clearly wishes for no mechanical ventilation or cardiac resuscitation Current Visit: No Oncology Subjective PN Interval history: The patient is lying in a left lateral decubitus position in bed. He has O2 in place but appears comfortable. He denies chest pain. Mild sputum production is noted. No wheezes are heard on posterior bilateral pulmonary auscultation. His cousin was present. We discussed discharge home tomorrow and will notify home hospice. Exam - Constitutional Vitals: Period Temp Pulse Resp BP Sys/Pak Pulse Ox Last 24 Hr 97 F-97.8 F 75-97 17-20 92-125/46-84 92-100 Results - Labs CBC & BMP: 11/25/16 07:22 11/25/16 07:22
[2016-11-26] MEDS: methylPREDNISolone SOD SUC 125 MG/2 ML VIAL IV SCH ×2 (09:22→21:00)
[2016-11-26] MEDS: THEOPHYLLINE ER (24 HR) 300 MG CAPSULE PO SCH (09:22)
[2016-11-26] MEDS: PANTOPRAZOLE 40 MG TABLET PO SCH (09:23)
[2016-11-26] MEDS: LEVOFLOXACIN INJ 750 MG in PREMIX 1 EACH IV SCH (21:00)
[2016-11-27] MEDS: ALBUTEROL/IPRATROPIUM 3 ML NEB RESP TX SCH ×2 (00:56→07:09)
--- NOTE | 2016-11-27 08:52 | Discharge Summary ---
Hospital Course - Hospital Course Hospital Course: Patient with non-small cell lung cancer with progressive disease who is on best supportive care only. The patient was admitted with increasing shortness of breath. We have tried to optimize his pulmonary function with continued supplemental O2, nebulized albuterol, IV Solu-Medrol and some antibiotics. His chest x-ray shows progression, the vast majority is which is felt to be attributed to a malignant etiology. The patient has remained stable during his hospitalization. He was on home hospice previously and will be discharged back to the care of home hospice based out of [facility]. His cousin has been present for several days during his hospitalization and it does appear to be his primary caregiver. Prescriptions provided today include Levaquin 750 daily 7. Prednisone taper beginning at 40 mg and decreasing back to 10 mg over a 10 day interval Diagnosis - Discharge Diagnosis (1) Non-small cell lung cancer Status: Acute Discharge Plan - Discharge Medications New Albuterol/Ipratropium Neb [Duoneb] 3 ml RESP TX RT Q6H Continue Budesonide/Formoterol 160-4.5 [Symbicort 160-4.5] 2 puff INH BID Aspirin EC Tab 81 mg PO DAILY Theophylline ER Cap (24 Hr) [Hector-24] 200 mg PO DAILY Ipratropium/Albuterol Sulfate [Iprat-Albut 0.5-3(2.5) mg/3 ml] 3 ml INH Q4H PRN PRN Reason: Shortness Of Breath Ipratropium/Albuterol Inhaler [Combivent Respimat Inhaler] 1 puff INH QID Furosemide Tab [Lasix Tab] 40 mg PO QOTHER DAY #30 tablet Lisinopril 10 mg PO DAILY Hydrocodone/Acetaminophen [Hydrocodon-Acetaminophn 10-325] 1 each PO Q6H PRN PRN Reason: Pain predniSONE TAB [PredniSONE] 10 mg PO DAILY ALPRAZolam [Alprazolam] 0.25 - 0.5 mg PO Q4H - Follow Up or Referral - Forms/Instructions Exam - Constitutional Vitals: Period Temp Pulse Resp BP Sys/Pak Pulse Ox Last 24 Hr 97.0 F-98.8 F 84-105 18-20 103-116/52-66 92-98 DS: Provider Date of admission: 11/24/16 19:29 Primary care physician: . No PCP Attending physician on admission: Walter Bush MD Discharging clinician: Walter Bush MD
[2016-11-27] MEDS: PANTOPRAZOLE 40 MG TABLET PO SCH (09:33)
[2016-11-27] MEDS: THEOPHYLLINE ER (24 HR) 300 MG CAPSULE PO SCH (09:34)
[2016-11-27 10:30] VITALS: BP 108/55
== END 2016-11-27 10:15 | disposition hospice, home (50) | DRG 182 ==
LOC: EDUNIT# → EDBD → N.ED 18:19 → N.EDINP 19:29 → N.4E 19:46
PROVIDERS: ADMIT Specialist; ATTEND Specialist